=== PATIENT | male | born 1960 | race Caucasian/White ===

== ENCOUNTER 2019-10-09 14:21 | Emergency (ER) | payer BC, OTHER ==
--- NOTE | 2019-10-09 14:30 | ER Document Report ---
ED Medical Screen (RME) - General Chief Complaint: Chest Tightness Stated Complaint: TIGHT CHEST Time Seen by Provider: 10/09/19 14:25 Primary Care Provider: MARICEL OQUENDO MD [Primary Care Provider] - Follow up as needed Mode of Arrival: Ambulatory Information source: Patient Notes: Otherwise healthy 59-year-old male presents the emergency department with a funny feeling in his chest. Patient reports that approximately 8 AM he started having a heaviness in his shortness of breath feeling. He denies any nausea but reports he got diaphoretic and sweaty. EKG shows heart rate 185, SVT. Patient denies history of this, he denies any cardiac history whatsoever and is a non-smoker. Patient is alert, calm and cooperative. Charge nurse made aware of need for room. Doctor's Discharge - Discharge Referrals: MARICEL OQUENDO MD [Primary Care Provider] - Follow up as needed
[2019-10-09] MEDS ORDERED: ADENOSINE INJ/PF 6 MG/2 ML SDV IV ONE (14:50)
[2019-10-09] MEDS ORDERED: NORMAL SALINE 1000 ML 1,000 ML IV ONE (14:52)
[2019-10-09 15:04] LABS: ABSOLUTE BASOPHILS # (AUTO) 0.1 10^3/uL (0.0-0.2); ABSOLUTE EOSINOPHILS # (AUTO) 0.1 10^3/uL (0.0-0.6); ABSOLUTE LYMPHOCYTES (AUTO) 2.5 10^3/uL (0.5-4.7); ABSOLUTE MONOCYTES (AUTO) 1.2 10^3/uL (0.1-1.4); ABSOLUTE NEUT (AUTO) 12.6 10^3/uL (1.7-8.2); BASOPHILS % (AUTO) 0.5 % (0-2); EOSINOPHILS % (AUTO) 0.7 % (0-6); HEMATOCRIT 46.4 % (37.9-51.0); HEMOGLOBIN 16.4 g/dL (13.5-17.0); LYMPHOCYTES % (AUTO) 15.1 % (13-45); MEAN CORPUSCULAR HEMOGLOBIN 33.2 pg (27.0-33.4); MEAN CORPUSCULAR HGB CONC 35.3 g/dL (32.0-36.0); MEAN CORPUSCULAR VOLUME 94 fl (80-97); MONOCYTES % (AUTO) 7.2 % (3-13); PLATELET COUNT 312 10^3/uL (150-450); RED BLOOD COUNT 4.93 10^6/uL (4.35-5.55); RED CELL DISTRIBUTION WIDTH 11.8 % (11.5-14.0); SEGMENTED NEUTROPHILS % (AUTO) 76.5 % (42-78); TOTAL CELLS COUNTED % (AUTO) 100 %; WHITE BLOOD COUNT 16.5 10^3/uL (4.0-10.5)
--- NOTE | 2019-10-09 15:12 | EKG REPORT ---
SEVERITY:- ABNORMAL ECG - SUPRAVENTRICULAR TACHYCARDIA LVH WITH SECONDARY REPOLARIZATION ABNORMALITY : Confirmed by: Mya Benitez MD 09-Oct-2019 15:12:05
--- NOTE | 2019-10-09 15:12 | RADIOLOGY REPORT (SQ) ---
EXAM DESCRIPTION: CHEST SINGLE VIEW IMAGES COMPLETED DATE/TIME: 10/09/2019 3:04 pm REASON FOR STUDY: CHEST PAIN COMPARISON: None. EXAM PARAMETERS: NUMBER OF VIEWS: One view. TECHNIQUE: An AP view of the chest was obtained. RADIATION DOSE: NA LIMITATIONS: None. FINDINGS: LUNGS AND PLEURA: No consolidation, pleural effusion or pneumothorax. MEDIASTINUM AND HILAR STRUCTURES: No mediastinal or hilar contour abnormality. HEART AND VASCULAR STRUCTURES: The cardiac silhouette and pulmonary vasculature are within normal flores its. BONES: No acute findings. HARDWARE: None in the chest. OTHER: No other finding. IMPRESSION: No acute cardiopulmonary process. TECHNICAL DOCUMENTATION: JOB ID: [id number] 2010 [employer]- All Rights Reserved Reading location - IP/workstation name: [email or web address]
--- NOTE | 2019-10-09 15:14 | ER Document Report ---
ED Cardiac - General Chief Complaint: Irregular Pulse Stated Complaint: TIGHT CHEST Time Seen by Provider: 10/09/19 14:25 Primary Care Provider: MARICEL OQUENDO MD [Primary Care Provider] - Follow up as needed Mode of Arrival: Ambulatory Information source: Patient - [facility] Notes: Patient states today he has had palpitations as well as some chest tightness and feeling lightheaded. He states he has no current chest tightness but did have chest tightness earlier today. The tightness lasted for about 1 hour. It is located in the center of his chest. It was moderate in intensity. There was no known radiation of this pain. He denies any fevers cough cold or congestion. No previous history of coronary artery disease. He states he does have a hist ory of thyroid disease but no recent changes in medication. Nothing known to make symptoms better or worse. - Related Data Allergies/Adverse Reactions: No Known Allergies Allergy (Verified 10/09/19 14:49) Past Medical History - General Information source: Patient - Social History Smoking Status: Never Smoker Frequency of alcohol use: None Drug Abuse: None Family History: Reviewed & Not Pertinent Patient has suicidal ideation: No Patient has homicidal ideation: No Review of Systems - Review of Systems Constitutional: denies: Chills, Fever Cardiovascular: Chest pain, Palpitations Respiratory: denies: Cough, Short of breath -: Yes All other systems reviewed and negative Physical Exam - Vital signs Vitals: Temp 98.2 F 10/09/19 14:31 Interpretation: Hypertensive, Tachycardic - General General appearance: Appears well, Alert - HEENT Head: Normocephalic, Atraumatic Eyes: Normal Pupils: PERRL - Respiratory Respiratory status: No respiratory distress Chest status: Nontender Breath sounds: Normal Chest palpation: Normal - Cardiovascular Rhythm: Regular, Tachycardia Heart sounds: Normal auscultation Murmur: No - Abdominal Inspection: Normal Distension: No distension Bowel sounds: Normal Tenderness: Nontender Organomegaly: No organomegaly - Back Back: Normal, Nontender - Extremities General upper extremity: Normal inspection, Nontender, Normal color, Normal ROM, Normal temperature General lower extremity: Normal inspection, Nontender, Normal color, Normal ROM, Normal temperature, Normal weight bearing. No: Neo's sign - Neurological Neuro grossly intact: Yes Cognition: Normal Orientation: AAOx4 Megan Coma Scale Eye Opening: Spontaneous Megan Coma Scale Verbal: Oriented Megan Coma Scale Motor: Obeys Commands Megan Coma Scale Total: 15 Speech: Normal Motor strength normal: LUE, RUE, LLE, RLE Sensory: Normal - Psychological Associated symptoms: Normal affect, Normal mood - Skin Skin Temperature: Warm Skin Moisture: Dry Skin Color: Normal Course - Re-evaluation Re-evalutation: 10/09/19 15:13 patient was given 6 mg of IV adenosine by rapid push. Within several seconds he broke from SVT into a sinus tachycardia and has remained in sinus since that time. 10/09/19 16:[address] Ho, he will see the patient in the office. - Vital Signs Vital signs: Temp Pulse Resp BP Pulse Ox 98.2 F 13 142/107 H 99 10/09/19 14:31 10/09/19 14:36 10/09/19 14:36 10/09/19 14:35 - Laboratory Result Diagrams: 10/09/19 14:45 10/09/19 14:45 Laboratory results interpreted by me: 10/09/19 10/09/19 10/09/19 14:45 14:45 14:45 WBC 16.5 H Absolute Neuts (auto) 12.6 H Glucose 134 H TSH 0.02 L - Diagnostic Test Radiology reviewed: Image reviewed, Reports reviewed - [id number] [id number] - EKG Interpretation by Me Rate: Tachycardia - 186 Rhythm: SVT [place]/QRS: No: Right axis deviation, Left axis deviation Discharge - Discharge Clinical Impression: SVT (supraventricular tachycardia) Condition: Stable Disposition: HOME, SELF-CARE Instructions: Paroxysmal Supraventricular Tachycardia ([facility]) Additional Instructions: The internet consultant, Dr. Ho, is going to contact you to arrange follow up Forms: Elevated Blood Pressure, Return to Work Referrals: MARIAH HO MD [ACTIVE STAFF] - Follow up in 1 week
[2019-10-09 15:19] LABS: ALBUMIN 4.5 g/dL (3.5-5.0); ALKALINE PHOSPHATASE 59 U/L (38-126); ANION GAP 11 (5-19); ASPARTATE AMINO TRANSFERASE 24 U/L (17-59); BILIRUBIN,TOTAL 0.6 mg/dL (0.2-1.3); BLOOD UREA NITROGEN 13 mg/dL (7-20); CALCIUM 9.8 mg/dL (8.4-10.2); CARBON DIOXIDE 24 mmol/L (22-30); CHLORIDE 104 mmol/L (98-107); GLUCOSE 134 mg/dL (75-110); POTASSIUM 4.5 mmol/L (3.6-5.0); TOTAL PROTEIN 7.5 g/dL (6.3-8.2)
[2019-10-09 16:56] VITALS: BP 123/86
--- NOTE | 2019-10-09 21:42 | EKG REPORT ---
SEVERITY:- NORMAL ECG - SINUS RHYTHM : Confirmed by: Mya Benitez MD 09-Oct-2019 21:41:18
== END 2019-10-09 16:50 | disposition home or self-care (01) ==
LOC: ER 14:21
DX: I47.1 Supraventricular tachycardia (principal); R42 Dizziness and giddiness; R07.89 Other chest pain; I10 Essential (primary) hypertension
CPT/HCPCS: 93005; 99284; 96361; 96374; 36415; 83735; 84443; 85025; 80053; 84484; 71045; 93010; J7030; J0153